=== PATIENT | female | born 1960 | race Hispanic/Latino ===

== ENCOUNTER → 2020-01-13 | Day surgery (SDC) | payer OTHER ==
[2019-11-27 15:15] LABS: BASOPHILS % 0.6 % (0.0-1.0); EOSINOPHILS # (AUTO) 0.2 (0.0-0.4); EOSINOPHILS % 2.7 % (0.0-6.0); HEMATOCRIT 38.3 % (34.2-44.1); HEMOGLOBIN 12.6 g/dL (12.0-16.0); LYMPHOCYTES # (AUTO) 1.9 (1.0-3.2); LYMPHOCYTES % 28.9 % (18.0-39.1); MEAN CORPUSCULAR HEMOGLOBIN 28.3 pg (28-32); MEAN CORPUSCULAR HGB CONC 32.9 g/dL (31-35); MEAN CORPUSCULAR VOLUME 85.9 fL (81-99); MONOCYTES # (AUTO) 0.4 (0.2-0.8); MONOCYTES % 6.2 % (4.4-11.3); NEUTROPHILS # (AUTO) 3.9 (2.1-6.9); NEUTROPHILS % 61.3 % (38.7-80.0); PLATELET COUNT 243 x10e3/uL (140-360); RED BLOOD COUNT 4.46 x10e6/uL (3.6-5.1); RED CELL DISTRIBUTION WIDTH 14.1 % (11.7-14.4)
--- NOTE | 2020-01-01 12:31 | NUR ---
PT TESTED POSITIVE 11/26 + 12/29 PER ALGORITHM CAN PROCEED W/ CASE. CALLED O.R. TO NOTIFY CHARGE 12/31@ 3600- NO ANSWER. LM WITH NURSE BOGGS SHE WILL NOTIFY O.R. CHARGE TODAY. 12/31 @7387.
[~2020-01-13] MED LIST: ASPIRIN81 MG PO; BACTRIM DS TAB1 EACH PO; FENTANYL CITRATE/PF 100MCG/2 ML INJ ONE; GLUCAGON FOR INJ 1 MG VIAL ONE; HYOSCYAMINE 0.125 MG TAB ONE; ISOSORBIDE MONO30 MG PO; LIDOCAINE HCL 2% LOCAL INJ 5 ML SDV VIAL INJ ONE; LIPITOR10 MG PO; METOPROLOL SUCC25 MG PO; MIDAZOLAM HCL 2 MG/2 ML VIAL ONE; PRILOSEC10 M1 PO; PROPOFOL IV EMULSION 10 MG/ML 20 ML VIAL ONE; SENNA LAXATIVE8.6 MG PO
[2020-01-13 13:50] VITALS: BP 117/71
--- NOTE | 2020-01-13 14:00 | Operative Report ---
DATE OF PROCEDURE: 01/13/2020 SURGEON: Jean Palafox MD PROCEDURE: Colonoscopy with polypectomy. INDICATIONS FOR COLONOSCOPY: Colorectal cancer screening. MEDICATIONS: The patient was done under MAC, please see anesthesiologist's note. PROCEDURE IN DETAIL: With the patient in the left lateral decubitus position, the flexible fiberoptic Olympus colonoscope was inserted into the rectum with ease and advanced all the way to the cecum. A minute polyp was noted in the cecal parts that was removed per cold biopsy forceps. Two additional polyps in the cecum, one was hot snared and one was cold biopsied. The ascending grossly appeared to be within normal limits. One polyp was hot snared and one polyp was hot biopsied from the transverse colon. Diverticular disease was noted in the sigmoid colon. Approximately 8 mm submucosal nodule rectum was removed per hot snare polypectomy. Lesion was suspicious for carcinoid. The scope was then retroflexed into the distal rectum and small internal hemorrhoids were noted, none of which was actively bleeding. The scope was then straightened out, it was subsequently withdrawn, and the patient tolerated the procedure well. IMPRESSION: 1. Cecal polyps x3, one cold snared and two cold biopsied. 2. Transverse colon polyps x2, one hot snared and one hot biopsied. 3. Diverticulosis. 4. Rectal submucosal nodule approximately 8 mm in size? carcinoid, hot snared. 5. Internal hemorrhoids, none actively bleeding. PLAN: Follow up histology. Initiate high-fiber, low-fat diet. Initiate high-fiber supplement. The patient might benefit from a followup colonoscopy in 3 years. Jean Palafox MD [facility] [place]/[facility] /[id number] cc: Sara Gonzales MD
== END | disposition home or self-care (01) ==
LOC: EDBD 12-03 07:30 → OR 10:08
PROVIDERS: ATTEND Internal Medicine Gastroenterology
DX: Z12.11 Encounter for screening for malignant neoplasm of colon (principal); D12.0 Benign neoplasm of cecum; D3A.8 Other benign neuroendocrine tumors; K57.30 Diverticulosis of large intestine without perforation or abscess without bleeding; K64.8 Other hemorrhoids; K21.9 Gastro-esophageal reflux disease without esophagitis; I25.10 Atherosclerotic heart disease of native coronary artery without angina pectoris; I10 Essential (primary) hypertension; E78.5 Hyperlipidemia, unspecified; I25.2 Old myocardial infarction; Z01.810 Encounter for preprocedural cardiovascular examination; Z01.812 Encounter for preprocedural laboratory examination; Z11.59 Encounter for screening for other viral diseases; Z79.82 Long term (current) use of aspirin
CPT/HCPCS: 36415; 45380; 45384; 45385; 85025; 93005; J1610; J2001; J2250; J2704; J3010; U0002 ×2; 45378

== ENCOUNTER → 2020-02-08 | Day surgery (SDC) | payer OTHER ==
[2020-02-05 15:19] LABS: BASOPHILS % 0.5 % (0.0-1.0); EOSINOPHILS # (AUTO) 0.3 (0.0-0.4); EOSINOPHILS % 4.5 % (0.0-6.0); HEMATOCRIT 37.4 % (34.2-44.1); HEMOGLOBIN 12.5 g/dL (12.0-16.0); LYMPHOCYTES # (AUTO) 2.1 (1.0-3.2); LYMPHOCYTES % 35.6 % (18.0-39.1); MEAN CORPUSCULAR HEMOGLOBIN 29.1 pg (28-32); MEAN CORPUSCULAR HGB CONC 33.4 g/dL (31-35); MEAN CORPUSCULAR VOLUME 87.2 fL (81-99); MONOCYTES # (AUTO) 0.5 (0.2-0.8); MONOCYTES % 7.8 % (4.4-11.3); NEUTROPHILS % 51.3 % (38.7-80.0); PLATELET COUNT 209 x10e3/uL (140-360); RED BLOOD COUNT 4.29 x10e6/uL (3.6-5.1); RED CELL DISTRIBUTION WIDTH 14.9 % (11.7-14.4)
[~2020-02-08] MED LIST changes: -GLUCAGON FOR INJ 1 MG VIAL ONE; +PHENYLEPHRINE HCL 1% 10 MG/ML VIAL ONE
--- NOTE | 2020-02-08 07:15 | NUR ---
SPIRITUAL CARE - Pre-Surgery Assessment: Pt in bed. Pt's at bedside. Pt reported supportive attention from family and friends. Intervention: [employer]boat Captain provided pastoral presence, hospitality, and sympathetic listening. Acquainted pt with availability of house sitter while hospitalized. Outcome: Pt expressed appreciation for visit. No need for follow up indicated at this time. [facility] O: [phone]
[2020-02-08 08:55] VITALS: BP 106/73
--- NOTE | 2020-02-08 09:29 | Operative Report ---
DATE OF PROCEDURE: 02/08/2020 SURGEON: Jean Palafox MD PROCEDURE: Flexible colonoscopy with biopsies. INDICATIONS FOR PROCEDURE: History of rectal carcinoid. The patient is in for a flexible sigmoidoscopy and biopsies of carcinoid resection site. MEDICATIONS: The patient was done under MAC, please see anesthesiologist's note. PROCEDURE IN DETAIL: With the patient in left lateral decubitus position, a flexible fiberoptic Olympus colonoscope was inserted into the rectum with ease and the carcinoid resection site was identified, approximately 6 cm from the anal verge, it was extensively biopsied. Site was tattooed. The scope was subsequently withdrawn. The patient tolerated the procedure well. IMPRESSION: Carcinoid resection site, distal rectum extensively biopsied, then tattooed. PLAN: 1. Follow up histology. 2. Biopsies were positive for residual carcinoid at the site of resection, then we will refer the patient to surgery for transanal wide excision of area. Jean Palafox MD [facility] [place]/[facility] /[id number] cc: Sara Gonzales MD
== END | disposition home or self-care (01) ==
LOC: OR 05:57
PROVIDERS: ATTEND Internal Medicine Gastroenterology
DX: K62.89 Other specified diseases of anus and rectum (principal); Z85.040 Personal history of malignant carcinoid tumor of rectum; K57.90 Diverticulosis of intestine, part unspecified, without perforation or abscess without bleeding; I25.10 Atherosclerotic heart disease of native coronary artery without angina pectoris; I10 Essential (primary) hypertension; E78.5 Hyperlipidemia, unspecified; K21.9 Gastro-esophageal reflux disease without esophagitis; Z01.812 Encounter for preprocedural laboratory examination; Z11.59 Encounter for screening for other viral diseases; Z79.82 Long term (current) use of aspirin; Z68.36 Body mass index [BMI] 36.0-36.9, adult; Z85.42 Personal history of malignant neoplasm of other parts of uterus
CPT/HCPCS: 36415; 45331; 45335; 85025; J2001; J2250; J2370; J2704; J3010; U0002; 45378

== ENCOUNTER → 2021-02-24 | Day surgery (SDC) | payer OTHER ==
[2021-02-23 10:11] LABS: BASOPHILS % 0.5 % (0.0-1.0); EOSINOPHILS # (AUTO) 0.1 (0.0-0.4); EOSINOPHILS % 1.7 % (0.0-6.0); HEMOGLOBIN 13.6 g/dL (12.0-16.0); LYMPHOCYTES # (AUTO) 1.9 (1.0-3.2); LYMPHOCYTES % 30.2 % (18.0-39.1); MEAN CORPUSCULAR HEMOGLOBIN 29.4 pg (28-32); MEAN CORPUSCULAR HGB CONC 33.2 g/dL (31-35); MEAN CORPUSCULAR VOLUME 88.7 fL (81-99); MONOCYTES # (AUTO) 0.4 (0.2-0.8); MONOCYTES % 6.6 % (4.4-11.3); NEUTROPHILS # (AUTO) 3.8 (2.1-6.9); NEUTROPHILS % 60.7 % (38.7-80.0); PLATELET COUNT 210 x10e3/uL (140-360); RED BLOOD COUNT 4.62 x10e6/uL (3.6-5.1); RED CELL DISTRIBUTION WIDTH 13.4 % (11.7-14.4)
[~2021-02-24] MED LIST changes: -FENTANYL CITRATE/PF 100MCG/2 ML INJ ONE; -HYOSCYAMINE 0.125 MG TAB ONE; -LIDOCAINE HCL 2% LOCAL INJ 5 ML SDV VIAL INJ ONE; +METOCLOPRAMIDE HCL 10 MG/2ML VIAL ONE; -MIDAZOLAM HCL 2 MG/2 ML VIAL ONE; +ONDANSETRON HCL INJ 2MG/ML 2ML 2 MG/ML VIAL ONE; -PHENYLEPHRINE HCL 1% 10 MG/ML VIAL ONE; +POVIDONE IODINE 0.05% 0.05 % ML PO ONE; +SIMETHICONE 40 MG/0.6 ML BTL ONE
[2021-02-24 14:35] VITALS: BP 111/66
== END | disposition home or self-care (01) ==
LOC: OR 08:00
PROVIDERS: ATTEND Internal Medicine Gastroenterology
DX: D3A.026 Benign carcinoid tumor of the rectum (principal); Z85.038 Personal history of other malignant neoplasm of large intestine; K64.8 Other hemorrhoids; K59.09 Other constipation; K21.9 Gastro-esophageal reflux disease without esophagitis; I25.2 Old myocardial infarction; I10 Essential (primary) hypertension; E78.5 Hyperlipidemia, unspecified; Z01.810 Encounter for preprocedural cardiovascular examination; Z01.812 Encounter for preprocedural laboratory examination; Z20.822 Contact with and (suspected) exposure to COVID-19; Z79.82 Long term (current) use of aspirin; Z68.36 Body mass index [BMI] 36.0-36.9, adult
CPT/HCPCS: 36415; 45380; 85025; 93005; U0002; 45330; J2405; J2765

== ENCOUNTER → 2022-01-25 | Outpatient (CLI) | payer OTHER ==
[~2022-01-25] MED LIST changes: -METOCLOPRAMIDE HCL 10 MG/2ML VIAL ONE; -ONDANSETRON HCL INJ 2MG/ML 2ML 2 MG/ML VIAL ONE; -POVIDONE IODINE 0.05% 0.05 % ML PO ONE; -PROPOFOL IV EMULSION 10 MG/ML 20 ML VIAL ONE; -SIMETHICONE 40 MG/0.6 ML BTL ONE
== END ==
LOC: NM 07:23
PROVIDERS: ATTEND Surgery
DX: R22.1 Localized swelling, mass and lump, neck (principal); E07.9 Disorder of thyroid, unspecified
CPT/HCPCS: 78014; A9516

== ENCOUNTER → 2022-02-16 | Outpatient (CLI) | payer OTHER ==
[2022-02-16 14:56] LABS: THYROID STIMULATING HORMONE 1.528 uIU/mL (0.350-4.940)
== END ==
LOC: LAB 13:12
PROVIDERS: ATTEND Surgery
DX: E05.90 Thyrotoxicosis, unspecified without thyrotoxic crisis or storm (principal)
CPT/HCPCS: 36415; 84436; 84443; 84479; 84480

== ENCOUNTER → 2022-09-03 | Outpatient (CLI) | payer OTHER | LOC: US 11:30 | PROVIDERS: ATTEND Surgery | DX: E04.1 Nontoxic single thyroid nodule (principal) | CPT/HCPCS: 76536 ==

== ENCOUNTER → 2022-10-15 | Outpatient (CLI) | payer OTHER ==
[~2022-10-15] MED LIST changes: +AZITHROMYCIN250 MG PO; +PLAVIX75 MG PO
== END ==
LOC: US 11:50
PROVIDERS: ATTEND Surgery
DX: R22.1 Localized swelling, mass and lump, neck (principal)
CPT/HCPCS: 10005; 88172; 88173; 88305